=== PATIENT | female | born 1975 | race Caucasian/White ===

== ENCOUNTER 2022-05-22 07:27 | Emergency (ER) | payer BC ==
[2022-05-22 07:36] VITALS: BP 167/101; TEMP 98.2
--- NOTE | 2022-05-22 08:02 | ED ---
General Adult HPI - General Chief complaint: Upper Respiratory Infection Stated complaint: Covid+/SOB Time Seen by Provider: 05/22/22 07:31 Source: patient Mode of arrival: ambulatory Limitations: no limitations - History of Present Illness Initial comments: 46-year-old female presents to the emergency room for a chief complaint of runny nose and shortness of breath. Patient states that for the past 7 days she has had a runny nose. She tested positive for COVID-19 3 days ago. Patient reports that she woke up today and maybe had some shortness of breath that wasn't sure if it was just because her nose is stuffy. She states that she just wanted to be checked out. Denies any chest pain. Denies cough. Patient has had 3 vaccinations. No fevers.Patient has no other complaints at this time including chest pain, abdominal pain, nausea or vomiting, headache, or visual changes. - Related Data Allergies Allergy/AdvReac Type Severity Reaction Status Date / Time azithromycin Allergy Rash/Hives Verified 05/22/22 07:37 Penicillins Allergy Rash/Hives Verified 05/22/22 07:37 Sulfa (Sulfonamide Allergy Rash/Hives Verified 05/22/22 07:37 Antibiotics) Review of Systems ROS Statement: Those systems with pertinent positive or pertinent negative responses have been documented in the HPI. ROS Other: All systems not noted in ROS Statement are negative. Past Medical History Past Medical History: No Reported History History of Any Multi-Drug Resistant Organisms: None Reported Past Surgical History: No Surgical Hx Reported Past Psychological History: No Psychological Hx Reported Smoking Status: Never smoker Past Alcohol Use History: Occasional Past Drug Use History: None Reported General Exam Limitations: no limitations General appearance: alert Head exam: Present: atraumatic, normocephalic Eye exam: Present: normal appearance, PERRL, EOMI. Absent: scleral icterus, conjunctival injection ENT exam: Present: normal exam, mucous membranes moist Neck exam: Present: normal inspection, full ROM. Absent: tenderness Respiratory exam: Present: normal lung sounds bilaterally. Absent: respiratory distress, wheezes Cardiovascular Exam: Present: regular rate, normal rhythm, normal heart sounds Neurological exam: Present: alert Course Vital Signs 05/22/22 05/22/22 07:31 08:34 Temperature 98.2 F Pulse Rate 77 60 Respiratory 18 16 Rate Blood Pressure 167/101 O2 Sat by Pulse 97 99 Oximetry Medical Decision Making - Medical Decision Making Vitals are stable. Patient is 99% on room air. No respiratory distress. Heart rate is normal. Chest x-ray was obtained and reviewed which was unremarkable. Patient did request a repeat COVID-19 test which was still positive. At this time patient was offered antibody infusion which she declined. Patient stable to be discharged home. Given strict return parameters. Discussed obtaining a pulse oximeter and making sure her oxygen stays above 90-92. She will return here for any worsening symptoms. - Lab Data Lab Results 05/22/22 Range/Units 08:34 Coronavirus (PCR) Detected A (Not Detectd) Disposition Clinical Impression: COVID-19 Disposition: HOME SELF-CARE Condition: Good Instructions (If sedation given, give patient instructions): How to Recover from COVID-19 at Home (ED) Additional Instructions: Please follow up with primary care in 1-2 days. Return to the ER for any worsening symptoms. Is patient prescribed a controlled substance at d/c from ED?: No Referrals: Abel Roca MD [Primary Care Provider] - 1-2 days Time of Disposition: 09:03
--- NOTE | 2022-05-22 08:14 | XR ---
EXAMINATION TYPE: XR chest 2V DATE OF EXAM: 05/22/2022 COMPARISON: NONE HISTORY: Chest pain TECHNIQUE: Frontal and lateral views of the chest are obtained. FINDINGS: There is no focal air space opacity. No evidence for pneumothorax. No pleural effusion. The cardiac silhouette size is within normal limits. The osseous structures are grossly intact. IMPRESSION: 1. No acute cardiopulmonary process.
[2022-05-22 08:34] VITALS: PULSE 60; RESP 16
== END 2022-05-22 09:13 | disposition home or self-care (01) ==
LOC: EC 07:27
DX: U07.1 COVID-19 (principal); Z88.1 Allergy status to other antibiotic agents; Z88.0 Allergy status to penicillin; Z88.2 Allergy status to sulfonamides
CPT/HCPCS: 71046; 87635; 99285